=== PATIENT | female | born 1935 | race Caucasian/White ===

== ENCOUNTER → 2021-08-05 | Outpatient (CLI) | payer MEDICARE, OTHER | LOC: HEART 5 07-09 14:30 | DX: R01.1 Cardiac murmur, unspecified (principal); R94.39 Abnormal result of other cardiovascular function study; I08.3 Combined rheumatic disorders of mitral, aortic and tricuspid valves | CPT/HCPCS: 93306 ==

== ENCOUNTER 2021-12-06 15:46 | Emergency (ER) | payer MEDICARE, OTHER | END 2021-12-06 17:08 | disposition home or self-care (01) | LOC: ER1 15:46 | DX: S32.512A Fracture of superior rim of left pubis, initial encounter for closed fracture (principal); S32.592A Other specified fracture of left pubis, initial encounter for closed fracture; Z79.82 Long term (current) use of aspirin; W19.XXXA Unspecified fall, initial encounter | CPT/HCPCS: 73502; 99283 ==

== ENCOUNTER 2022-03-22 10:50 | Emergency (ER) | payer MEDICARE, OTHER ==
[~2022-03-22] VITALS: Ht 162.6 cm; Wt 56.2 kg
[2022-03-22 13:54] LABS: HEMOGLOBIN 10.8 gm/dl (12.3-15.3); RED BLOOD COUNT 3.3 M/UL (4.00-5.10); WHITE BLOOD COUNT 3.7 K/UL (4.5-11.0)
[2022-03-22 14:20] LABS: BUN/CREATININE RATIO 44 (0-10)
[2022-03-22] MEDS ORDERED: FAMOTIDINE20 MG PO (17:18)
[2022-03-22] MEDS ORDERED: LEVOTHYROXINE125 MCG PO (17:18)
[2022-03-22] MEDS ORDERED: METFORMIN HCL500 MG PO (17:18)
[2022-03-22] MEDS ORDERED: DIGOXIN125 MCG PO (17:18)
[2022-03-22] MEDS ORDERED: METOPROLOL TART50 MG PO (17:19)
[2022-03-22] MEDS ORDERED: ZOCOR40 MG PO (17:19)
[2022-03-22] MEDS ORDERED: LOSARTAN-HCTZ1 EAC2 PO (17:20)
[2022-03-22] MEDS ORDERED: NITRO-TIME2.5 MG PO (17:22)
== END 2022-03-22 18:15 | disposition left against medical advice (07) ==
LOC: ER1 10:50 → CDU 16:55 → ER1 16:55 → CDU 18:15 → ER1 18:15
PROVIDERS: Physician Assistant Medical
DX: S22.089A Unspecified fracture of T11-T12 vertebra, initial encounter for closed fracture (principal); S35.09XA Other injury of abdominal aorta, initial encounter; K52.9 Noninfective gastroenteritis and colitis, unspecified; K74.60 Unspecified cirrhosis of liver; N20.0 Calculus of kidney; I10 Essential (primary) hypertension; E78.5 Hyperlipidemia, unspecified; Z20.822 Contact with and (suspected) exposure to COVID-19; E11.9 Type 2 diabetes mellitus without complications; I25.2 Old myocardial infarction; I82.409 Acute embolism and thrombosis of unspecified deep veins of unspecified lower extremity; Z79.4 Long term (current) use of insulin; Z79.899 Other long term (current) drug therapy; X58.XXXA Exposure to other specified factors, initial encounter
CPT/HCPCS: 72131; 80053; 81001; 85025; 99284; U0002

== ENCOUNTER 2022-07-03 18:59 | Emergency (ER) | payer MEDICARE ==
[~2022-07-03 18:59] MED LIST: DIGOXIN125 MCG PO; FAMOTIDINE20 MG PO; LEVOTHYROXINE125 MCG PO; LOSARTAN-HCTZ1 EAC2 PO; METFORMIN HCL500 MG PO; METOPROLOL TART50 MG PO; NITRO-TIME2.5 MG PO; ZOCOR40 MG PO
[2022-07-03 19:53] LABS: HEMOGLOBIN 9.9 gm/dl (12.3-15.3); RED BLOOD COUNT 2.98 M/UL (4.00-5.10); WHITE BLOOD COUNT 8.9 K/UL (4.5-11.0)
[2022-07-03 20:22] LABS: BUN/CREATININE RATIO 16 (0-10)
== END 2022-07-03 19:00 | disposition expired ==
LOC: ER1 18:59
PROVIDERS: Emergency Medicine
DX: I46.9 Cardiac arrest, cause unspecified (principal); I21.09 ST elevation (STEMI) myocardial infarction involving other coronary artery of anterior wall; I11.0 Hypertensive heart disease with heart failure; Z51.81 Encounter for therapeutic drug level monitoring
CPT/HCPCS: 36600; 80053; 82550; 82553; 82803; 83605; 83690; 84484; 85025; 85610; 86850; 86900; 86901; 87040; 92950; 94002; 99285; J0171; J0461; J1165; J1265; J7070